=== PATIENT | female | born 1935 | race Caucasian/White ===

== ENCOUNTER 2017-08-16 23:12 | Inpatient (IN) | payer OTHER, MEDICAID ==
[~2017-08-16] VITALS: Ht 157.5 cm; Wt 43.1 kg
[2017-08-16 23:12] VITALS: BP_SYST 69
[2017-08-17] VITALS (25 sets, daily range): BP systolic 43–153
[2017-08-17] MEDS ORDERED: cefTRIAXone 1 GM IVPB PREMIX 50 ML IV ONE (00:15)
[2017-08-17 00:36] LABS: ALANINE AMINOTRANSFERASE 15 U/L (12-78); ALBUMIN 2.6 g/dL (3.4-4.8); ASPARTATE AMINOTRANSFERASE 29 U/L (10-37); TOTAL BILIRUBIN 0.6 mg/dL (0.0-1.0)
[2017-08-17] MEDS ORDERED: DOCU-144 PO (00:39)
[2017-08-17] MEDS ORDERED: ASCO500T20 PO (00:39)
[2017-08-17] MEDS ORDERED: ACET-2165 PO (00:39)
[2017-08-17] MEDS ORDERED: MAGN400O4 PO (00:40)
[2017-08-17] MEDS ORDERED: MULT-300 PO (00:41)
[2017-08-17] MEDS ORDERED: ACET-1010 PO (00:42)
[2017-08-17 01:00] LABS: CLARITY/URINE CLOUDY (CLEAR); COLOR,URINE RED (YELLOW); PH,URINE 8.5 (5.0-8.0)
[2017-08-17 01:01] LABS: BILIRUBIN,URINE NEGATIVE (NEGATIVE); BLOOD, URINE 3+ (NEGATIVE); GLUCOSE,URINE NEGATIVE (NEGATIVE); KETONES,URINE NEGATIVE (NEGATIVE); LEUKOCYTE ESTERASE ,URINE 3+ (NEGATIVE); NITRITE, URINE NEGATIVE (NEGATIVE); PROTEIN URINE 1+ (NEGATIVE); UROBILINOGEN,URINE 0.2 (0.2-1.0)
[2017-08-17 01:08] LABS: BACTERIA,URINE MANY /HPF (None Seen); MUCUS,URINE 2+ /LPF (None Seen); RBC,URINE >100 /HPF (0-3); WBC,URINE 20-50 /HPF (0-3)
[2017-08-17 01:10] LABS: HEMATOCRIT 41.9 % (36-48); HEMOGLOBIN 13.8 g/dL (12.0-16.0); MEAN CORPUSCULAR HEMOGLOBIN 28 pg (27-31); MEAN CORPUSCULAR HGB CONC 33 % (32-36); MEAN CORPUSCULAR VOLUME 86 fL (79.0-98.0); PLATELET COUNT (AUTO) 153 K/uL (130-430); RED BLOOD CELL COUNT(AUTO) 4.87 MIL/uL (4.2-6.2); RED CELL DISTRIBUTION WIDTH 13.6 % (9.0-15.0)
[2017-08-17 01:12] LABS: WHITE BLOOD COUNT (AUTO) 37.8 K/uL (4.8-10.8)
[2017-08-17 01:19] LABS: BAND % (MANUAL) 27 % (0-6); BASOPHILS % (MANUAL) 0 % (0-2); EOSINOPHILS % (MANUAL) 0 % (0-7); LYMPHOCYTES % (MANUAL) 3 % (20-46); METAMYELOCYTES % 2 % (0-0); MONOCYTES % (MANUAL) 1 % (0-11)
[2017-08-17 01:24] LABS: ANION GAP 20 (5-15); CALCIUM 8.8 mg/dL (8.4-11.0); CHLORIDE 109 mmol/L (98-107); CREATININE 3.31 mg/dL (0.55-1.30); GLUCOSE 138 mg/dL (70-99); POTASSIUM 3.4 mmol/L (3.5-5.1); UREA NITROGEN, BLOOD 77 mg/dL (8-21)
[2017-08-17 01:27] LABS: SODIUM SERUM 148 mmol/L (136-145)
[2017-08-17 01:30] LABS: INR 1.2 (0.8-1.2); PROTHROMBIN TIME 12.6 SECS (9.5-12.5)
[2017-08-17] MEDS ORDERED: NS 500 ML IV ONE ×2 (02:30→08:45)
[2017-08-17] MEDS ORDERED: PIPERACILLIN/TAZO 4.5 GM in NS 100 ML IV ONE (02:45)
[2017-08-17] MEDS ORDERED: ONDANSETRON HCL 4 MG/2 ML VIAL IVP PRN (02:45)
[2017-08-17] MEDS ORDERED: ACETAMINOPHEN 325 MG TABLET PO PRN (02:45)
[2017-08-17] MEDS ORDERED: PIPERACILLIN/TAZOBACTAM 4.5 GM/VIAL (ZOSYN) IV ONE (03:00)
[2017-08-17] MEDS: NACL 0.9% 1,000 ML IV SCH ×2 (03:26→10:03)
[2017-08-17] MEDS ORDERED: NOREPINEPHRINE 4 MG/4 ML VIAL IV ONE (03:33)
[2017-08-17] MEDS: NOREPINEPHRINE BITARTRATE 4 MG in NS 246 ML IV SCH ×3 (03:41→23:15)
[2017-08-17] MEDS ORDERED: PIPERACILLIN/TAZO 4.5 GM in NS 100 ML IV SCH (06:00)
[2017-08-17 06:52] LABS: ANION GAP 19 (5-15); CALCIUM 8.7 mg/dL (8.4-11.0); CHLORIDE 110 mmol/L (98-107); CREATININE 2.91 mg/dL (0.55-1.30); GLUCOSE 236 mg/dL (70-99); SODIUM SERUM 146 mmol/L (136-145); UREA NITROGEN, BLOOD 78 mg/dL (8-21)
[2017-08-17 07:02] LABS: ALANINE AMINOTRANSFERASE 12 U/L (12-78); ASPARTATE AMINOTRANSFERASE 27 U/L (10-37); TOTAL BILIRUBIN 0.7 mg/dL (0.0-1.0)
[2017-08-17 07:09] LABS: POTASSIUM 2.9 mmol/L (3.5-5.1)
[2017-08-17 07:13] LABS: HEMATOCRIT 43.8 % (36-48); HEMOGLOBIN 14.9 g/dL (12.0-16.0); MEAN CORPUSCULAR HEMOGLOBIN 29 pg (27-31); MEAN CORPUSCULAR HGB CONC 34 % (32-36); MEAN CORPUSCULAR VOLUME 86 fL (79.0-98.0); PLATELET COUNT (AUTO) 141 K/uL (130-430); RED CELL DISTRIBUTION WIDTH 13.8 % (9.0-15.0)
[2017-08-17 07:38] LABS: WHITE BLOOD COUNT (AUTO) 64.4 K/uL (4.8-10.8)
[2017-08-17] MEDS ORDERED: NACL 0.9% 1,000 ML IV ONE ×2 (07:45)
[2017-08-17] MEDS ORDERED: SODIUM BICARBONATE 8.4% VIAL 50 MEQ/50 ML VIAL INJ ONE (08:00)
[2017-08-17] MEDS ORDERED: VANCOMYCIN HCL 1 GM/NS PREMIX 250 ML IV ONE (08:00)
[2017-08-17] MEDS ORDERED: DIGOXIN 0.5 MG/2 ML AMP IVP ONE ×3 (08:00→17:45)
[2017-08-17] MEDS ORDERED: DOPamine PREMIX 250 ML IV PRN (08:00)
[2017-08-17] MEDS ORDERED: PANTOPRAZOLE SODIUM 40 MG/VIAL (PROTONIX) IVP SCH (09:00)
[2017-08-17] MEDS: PANTOPRAZOLE SODIUM 40 MG/VIAL (PROTONIX) IVP SCH (09:00)
[2017-08-17] MEDS: ENOXAPARIN SODIUM 30 MG/0.3 ML SYRINGE SUBCUT SCH (09:16)
[2017-08-17] MEDS: POTASSIUM CHLORIDE 40 MEQ in NS 250 ML IV SCH ×2 (09:16→14:59)
[2017-08-17] MEDS: ALBUMIN HUMAN 25% 50 ML IV SCH ×3 (09:22→21:26)
[2017-08-17] MEDS ORDERED: SODIUM BICARBONATE 8.4% JECT 50 MEQ/50 ML SYRINGE ONE (09:25)
[2017-08-17] MEDS ORDERED: METOPROLOL TARTRATE 5 MG/5 ML VIAL IVP PRN (09:30)
[2017-08-17 09:50] LABS: ATYPICAL LYMPHOCYTES % 0 % (0-0); BAND % (MANUAL) 28 % (0-6); BASOPHILS % (MANUAL) 0 % (0-2); EOSINOPHILS % (MANUAL) 0 % (0-7); LYMPHOCYTES % (MANUAL) 1 % (20-46); METAMYELOCYTES % 2 % (0-0); MONOCYTES % (MANUAL) 2 % (0-11); MYELOCYTES % 4 % (0-0); PROMYELOCYTES % 2 % (0-0)
[2017-08-17] MEDS ORDERED: FUROSEMIDE 20 MG/2 ML VIAL IVP ONE (11:45)
[2017-08-17] MEDS ORDERED: IPRATROPIUM/ALBUTEROL SULFATE 3 ML AMPUL.NEB INH PRN (11:45)
[2017-08-17] MEDS ORDERED: IPRATROPIUM/ALBUTEROL SULFATE 3 ML AMPUL.NEB INH SCH (11:45)
[2017-08-17] MEDS ORDERED: IPRATROPIUM BROM 0.5 MG/2.5 ML VIAL.NEB (ATROVENT) INH PRN (12:00)
[2017-08-17] MEDS ORDERED: LevALBUTEROL HCL 1.25 MG/0.5 ML *CONC.* VIAL.NEB (XOPENEX CONC.) INH PRN (12:00)
[2017-08-17] MEDS: LevALBUTEROL HCL 1.25 MG/0.5 ML *CONC.* VIAL.NEB (XOPENEX CONC.) INH SCH ×2 (12:22→20:32)
[2017-08-17] MEDS: IPRATROPIUM BROM 0.5 MG/2.5 ML VIAL.NEB (ATROVENT) INH SCH ×2 (12:22→20:32)
[2017-08-17] MEDS ORDERED: HYDROCORTISONE SOD SUCC 100 MG/2 ML VIAL IVP ONE (14:45)
[2017-08-17 16:56] LABS: ALBUMIN 2.7 g/dL (3.4-4.8); ANION GAP 14 (5-15); CALCIUM 8.2 mg/dL (8.4-11.0); CHLORIDE 119 mmol/L (98-107); GLUCOSE 144 mg/dL (70-99); POTASSIUM 3.9 mmol/L (3.5-5.1); SODIUM SERUM 150 mmol/L (136-145); TOTAL BILIRUBIN 0.9 mg/dL (0.0-1.0); UREA NITROGEN, BLOOD 61 mg/dL (8-21)
[2017-08-17] MEDS ORDERED: GENTAMICIN 80 MG/ ISO-OSM 100 ML PREMIX IV SCH (17:00)
[2017-08-17] MEDS: PIPERACILLIN/TAZO 2.25G/DEX-IS 50 ML IV SCH ×2 (17:49→23:14)
[2017-08-17 17:50] LABS: ALANINE AMINOTRANSFERASE 19 U/L (12-78); ASPARTATE AMINOTRANSFERASE 60 U/L (10-37)
[2017-08-17] MEDS ORDERED: SODIUM BICARBONATE 8.4% JECT 50 MEQ/50 ML SYRINGE IVP ONE (18:30)
[2017-08-17] MEDS: HYDROCORTISONE SOD SUCC 100 MG/2 ML VIAL IVP SCH (21:26)
[2017-08-18] VITALS (24 sets, daily range): BP systolic 93–150
[2017-08-18] MEDS: LevALBUTEROL HCL 1.25 MG/0.5 ML *CONC.* VIAL.NEB (XOPENEX CONC.) INH SCH ×4 (01:00→19:50)
[2017-08-18] MEDS: IPRATROPIUM BROM 0.5 MG/2.5 ML VIAL.NEB (ATROVENT) INH SCH ×4 (01:00→19:50)
[2017-08-18] MEDS: PIPERACILLIN/TAZO 2.25G/DEX-IS 50 ML IV SCH ×4 (05:10→23:37)
[2017-08-18] MEDS: NACL 0.9% 1,000 ML IV SCH (05:10)
[2017-08-18] MEDS: HYDROCORTISONE SOD SUCC 100 MG/2 ML VIAL IVP SCH ×3 (05:11→21:51)
[2017-08-18 06:53] LABS: ANION GAP 19 (5-15); CALCIUM 8.3 mg/dL (8.4-11.0); CREATININE 1.62 mg/dL (0.55-1.30); GLUCOSE 141 mg/dL (70-99); POTASSIUM 3.8 mmol/L (3.5-5.1); SODIUM SERUM 156 mmol/L (136-145); UREA NITROGEN, BLOOD 55 mg/dL (8-21)
[2017-08-18 07:07] LABS: ALANINE AMINOTRANSFERASE 21 U/L (12-78); ALBUMIN 2.7 g/dL (3.4-4.8); ASPARTATE AMINOTRANSFERASE 58 U/L (10-37); THYROID STIMULATING HORMONE 0.13 uIu/mL (0.36-3.74); TOTAL BILIRUBIN 0.8 mg/dL (0.0-1.0)
[2017-08-18 07:09] LABS: CHLORIDE 120 mmol/L (98-107); INR 1.2 (0.8-1.2)
[2017-08-18 07:36] LABS: CHOLESTEROL 122 mg/dL (<200); HDL CHOLESTEROL 9 mg/dL (>55); LDL CHOLESTEROL 48 mg/dL (<100); TRIGLYCERIDES 137 mg/dL (30-150)
[2017-08-18] MEDS: ENOXAPARIN SODIUM 30 MG/0.3 ML SYRINGE SUBCUT SCH (08:26)
[2017-08-18] MEDS ORDERED: FUROSEMIDE 40 MG/4 ML VIAL ONE (08:27)
[2017-08-18] MEDS: PANTOPRAZOLE SODIUM 40 MG/VIAL (PROTONIX) IVP SCH (08:27)
[2017-08-18] MEDS: DIGOXIN 0.5 MG/2 ML AMP IVP SCH (08:27)
[2017-08-18] MEDS ORDERED: FUROSEMIDE 40 MG/4 ML VIAL IVP ONE (08:30)
[2017-08-18 08:54] LABS: HEMATOCRIT 39.1 % (36-48); HEMOGLOBIN 12.9 g/dL (12.0-16.0); MEAN CORPUSCULAR HEMOGLOBIN 28 pg (27-31); MEAN CORPUSCULAR HGB CONC 33 % (32-36); MEAN CORPUSCULAR VOLUME 85 fL (79.0-98.0); PLATELET COUNT (AUTO) 106 K/uL (130-430); RED CELL DISTRIBUTION WIDTH 14.3 % (9.0-15.0)
[2017-08-18 09:03] LABS: WHITE BLOOD COUNT (AUTO) 48.6 K/uL (4.8-10.8)
[2017-08-18] MEDS: NOREPINEPHRINE BITARTRATE 4 MG in NS 246 ML IV SCH (09:40)
[2017-08-18 09:42] LABS: BAND % (MANUAL) 13 % (0-6)
[2017-08-18 09:43] LABS: BASOPHILS % (MANUAL) 0 % (0-2); EOSINOPHILS % (MANUAL) 0 % (0-7); LYMPHOCYTES % (MANUAL) 3 % (20-46); MONOCYTES % (MANUAL) 2 % (0-11)
[2017-08-18] MEDS ORDERED: 0.45% NS 500 ML IV ONE (09:45)
[2017-08-18] MEDS ORDERED: SODIUM BICARBONATE 8.4% JECT 50 MEQ in D5W 1,000 ML IV SCH (18:15)
[2017-08-18] MEDS ORDERED: SODIUM BICARBONATE 8.4% JECT 50 MEQ/50 ML SYRINGE IVP ONE (18:15)
[2017-08-18] MEDS: D5W 1,000 ML IV SCH (18:29)
[2017-08-18] MEDS ORDERED: COMMUNICATION ORDER XX SCH (18:30)
[2017-08-19] VITALS (25 sets, daily range): BP systolic 95–135
[2017-08-19] MEDS: IPRATROPIUM BROM 0.5 MG/2.5 ML VIAL.NEB (ATROVENT) INH SCH ×4 (01:53→20:03)
[2017-08-19] MEDS: LevALBUTEROL HCL 1.25 MG/0.5 ML *CONC.* VIAL.NEB (XOPENEX CONC.) INH SCH ×4 (01:53→20:03)
[2017-08-19] MEDS: NOREPINEPHRINE BITARTRATE 4 MG in NS 246 ML IV SCH (04:05)
[2017-08-19] MEDS: HYDROCORTISONE SOD SUCC 100 MG/2 ML VIAL IVP SCH ×2 (05:56→20:21)
[2017-08-19] MEDS: PIPERACILLIN/TAZO 2.25G/DEX-IS 50 ML IV SCH ×4 (05:56→23:11)
[2017-08-19 07:00] LABS: ANION GAP 11 (5-15); CALCIUM 8.2 mg/dL (8.4-11.0); CHLORIDE 116 mmol/L (98-107); CREATININE 1.28 mg/dL (0.55-1.30); GLUCOSE 248 mg/dL (70-99); SODIUM SERUM 154 mmol/L (136-145); UREA NITROGEN, BLOOD 42 mg/dL (8-21)
[2017-08-19 07:11] LABS: ALANINE AMINOTRANSFERASE 21 U/L (12-78); ALBUMIN 2.4 g/dL (3.4-4.8); ASPARTATE AMINOTRANSFERASE 34 U/L (10-37); FREE T4 (FREE THYROXINE) 1.1 ng/dl (0.8-1.5); TOTAL BILIRUBIN 0.5 mg/dL (0.0-1.0)
[2017-08-19 07:20] LABS: POTASSIUM 2.7 mmol/L (3.5-5.1)
[2017-08-19 07:27] LABS: BASOPHILS % (AUTO) 0.1 % (0.0-2.0); HEMATOCRIT 39.1 % (36-48); HEMOGLOBIN 12.9 g/dL (12.0-16.0); LYMPHOCYTES # (AUTO) 0.9 K/uL (1.0-5.5); LYMPHOCYTES % (AUTO) 2.5 % (20.5-51.5); MEAN CORPUSCULAR HEMOGLOBIN 28 pg (27-31); MEAN CORPUSCULAR HGB CONC 33 % (32-36); MEAN CORPUSCULAR VOLUME 85 fL (79.0-98.0); MONOCYTES # (AUTO) 0.8 K/uL (0.0-1.0); MONOCYTES % (AUTO) 2.3 % (1.7-9.3); NEUTROPHILS # (AUTO) 33.2 K/uL (1.8-7.7); PLATELET COUNT (AUTO) 85 K/uL (130-430); RED CELL DISTRIBUTION WIDTH 13.8 % (9.0-15.0)
[2017-08-19 08:08] LABS: WHITE BLOOD COUNT (AUTO) 34.9 K/uL (4.8-10.8)
[2017-08-19] MEDS ORDERED: POTASSIUM CHLORIDE 20 MEQ/PKT PACKET PO ONE (08:30)
[2017-08-19] MEDS ORDERED: KCL 40 mEq in D5W 1000 mL 1,000 ML IV SCH (09:00)
[2017-08-19] MEDS: DIGOXIN 0.5 MG/2 ML AMP IVP SCH (09:28)
[2017-08-19] MEDS: D5W 1,000 ML IV SCH ×3 (09:28→23:11)
[2017-08-19] MEDS: PANTOPRAZOLE SODIUM 40 MG/VIAL (PROTONIX) IVP SCH (09:29)
[2017-08-19] MEDS: ENOXAPARIN SODIUM 30 MG/0.3 ML SYRINGE SUBCUT SCH (09:29)
[2017-08-19] MEDS ORDERED: POTASSIUM CHLORIDE 60 MEQ in D5W 500 ML IV ONE (09:30)
[2017-08-19 10:25] LABS: NEUTROPHILS % (AUTO) 95.1 % (40.0-70.0)
[2017-08-19] MEDS: METOPROLOL TARTRATE 5 MG/5 ML VIAL IVP SCH ×3 (10:26→22:00)
[2017-08-19] MEDS ORDERED: GENTAMICIN 100 MG/ ISO-OSM 50 ML PREMIX IV SCH (12:00)
[2017-08-19] MEDS ORDERED: COMMUNICATION ORDER XX ONE (15:15)
[2017-08-20] VITALS (25 sets, daily range): BP systolic 94–127
[2017-08-20] MEDS: LevALBUTEROL HCL 1.25 MG/0.5 ML *CONC.* VIAL.NEB (XOPENEX CONC.) INH SCH ×4 (00:40→19:32)
[2017-08-20] MEDS: IPRATROPIUM BROM 0.5 MG/2.5 ML VIAL.NEB (ATROVENT) INH SCH ×4 (00:40→19:32)
[2017-08-20] MEDS: METOPROLOL TARTRATE 5 MG/5 ML VIAL IVP SCH ×4 (04:00→21:25)
[2017-08-20] MEDS: PIPERACILLIN/TAZO 2.25G/DEX-IS 50 ML IV SCH ×4 (05:19→23:10)
[2017-08-20 07:09] LABS: SODIUM SERUM 144 mmol/L (136-145)
[2017-08-20 07:10] LABS: ALANINE AMINOTRANSFERASE 19 U/L (12-78); ANION GAP 8 (5-15); ASPARTATE AMINOTRANSFERASE 19 U/L (10-37); CHLORIDE 110 mmol/L (98-107); CREATININE 1.07 mg/dL (0.55-1.30); GLUCOSE 263 mg/dL (70-99); POTASSIUM 3.4 mmol/L (3.5-5.1); TOTAL BILIRUBIN 0.6 mg/dL (0.0-1.0); UREA NITROGEN, BLOOD 36 mg/dL (8-21)
[2017-08-20 07:59] LABS: BASOPHILS % (AUTO) 0.3 % (0.0-2.0); EOSINOPHILS % (AUTO) 0.1 % (0.0-4.0); LYMPHOCYTES % (AUTO) 6.1 % (20.5-51.5); MEAN CORPUSCULAR HEMOGLOBIN 28 pg (27-31); MEAN CORPUSCULAR HGB CONC 32 % (32-36); MEAN CORPUSCULAR VOLUME 85 fL (79.0-98.0); MONOCYTES # (AUTO) 0.4 K/uL (0.0-1.0); MONOCYTES % (AUTO) 2.3 % (1.7-9.3); NEUTROPHILS % (AUTO) 91.2 % (40.0-70.0); PLATELET COUNT (AUTO) 76 K/uL (130-430); RED BLOOD CELL COUNT(AUTO) 3.98 MIL/uL (4.2-6.2); RED CELL DISTRIBUTION WIDTH 14.1 % (9.0-15.0); WHITE BLOOD COUNT (AUTO) 16.4 K/uL (4.8-10.8)
[2017-08-20] MEDS: PANTOPRAZOLE SODIUM 40 MG/VIAL (PROTONIX) IVP SCH (10:29)
[2017-08-20] MEDS: ENOXAPARIN SODIUM 30 MG/0.3 ML SYRINGE SUBCUT SCH (10:29)
[2017-08-20] MEDS: HYDROCORTISONE SOD SUCC 100 MG/2 ML VIAL IVP SCH ×2 (10:29→21:24)
[2017-08-20] MEDS: D5W 1,000 ML IV SCH ×2 (11:14→22:17)
[2017-08-20] MEDS ORDERED: POTASSIUM CHLORIDE 40 MEQ in NS 250 ML IV ONE (17:00)
[2017-08-20] MEDS: VANCOMYCIN HCL 500 MG in NS 100 ML IV SCH (17:10)
[2017-08-20] MEDS: KCL 20 mEq in 100 mL (PREMIX) 100 ML IV SCH ×2 (17:14→19:32)
[2017-08-21] VITALS (15 sets, daily range): BP systolic 96–129
[2017-08-21] MEDS: LevALBUTEROL HCL 1.25 MG/0.5 ML *CONC.* VIAL.NEB (XOPENEX CONC.) INH SCH ×4 (00:35→19:46)
[2017-08-21] MEDS: IPRATROPIUM BROM 0.5 MG/2.5 ML VIAL.NEB (ATROVENT) INH SCH ×4 (00:35→19:46)
[2017-08-21 02:15] LABS: T4 (THYROXINE) 4.9 ug/dL (4.5-12.0)
[2017-08-21] MEDS: PIPERACILLIN/TAZO 2.25G/DEX-IS 50 ML IV SCH ×2 (05:27→12:02)
[2017-08-21] MEDS: METOPROLOL TARTRATE 5 MG/5 ML VIAL IVP SCH ×3 (05:28→09:17)
[2017-08-21 06:40] LABS: BASOPHILS % (AUTO) 0.1 % (0.0-2.0); EOSINOPHILS % (AUTO) 0.1 % (0.0-4.0); HEMATOCRIT 33.9 % (36-48); HEMOGLOBIN 11.5 g/dL (12.0-16.0); LYMPHOCYTES # (AUTO) 0.6 K/uL (1.0-5.5); LYMPHOCYTES % (AUTO) 4.5 % (20.5-51.5); MEAN CORPUSCULAR HEMOGLOBIN 29 pg (27-31); MEAN CORPUSCULAR HGB CONC 34 % (32-36); MEAN CORPUSCULAR VOLUME 86 fL (79.0-98.0); MONOCYTES # (AUTO) 0.2 K/uL (0.0-1.0); MONOCYTES % (AUTO) 1.7 % (1.7-9.3); NEUTROPHILS # (AUTO) 12.6 K/uL (1.8-7.7); NEUTROPHILS % (AUTO) 93.6 % (40.0-70.0); PLATELET COUNT (AUTO) 62 K/uL (130-430); RED BLOOD CELL COUNT(AUTO) 3.96 MIL/uL (4.2-6.2); RED CELL DISTRIBUTION WIDTH 13.7 % (9.0-15.0); WHITE BLOOD COUNT (AUTO) 13.4 K/uL (4.8-10.8)
[2017-08-21 06:55] LABS: ALANINE AMINOTRANSFERASE 26 U/L (12-78); ALBUMIN 2.1 g/dL (3.4-4.8); ANION GAP 6 (5-15); ASPARTATE AMINOTRANSFERASE 27 U/L (10-37); CHLORIDE 106 mmol/L (98-107); CREATININE 0.84 mg/dL (0.55-1.30); GLUCOSE 258 mg/dL (70-99); PHOSPHORUS 1.9 mg/dL (2.7-4.5); POTASSIUM 3.6 mmol/L (3.5-5.1); SODIUM SERUM 138 mmol/L (136-145); TOTAL BILIRUBIN 0.8 mg/dL (0.0-1.0); TRIGLYCERIDES 109 mg/dL (30-150); UREA NITROGEN, BLOOD 24 mg/dL (8-21)
[2017-08-21] MEDS: SILVER 44.4 ML GEL.ER.ML. TP SCH (09:00)
[2017-08-21] MEDS: ENOXAPARIN SODIUM 30 MG/0.3 ML SYRINGE SUBCUT SCH (09:03)
[2017-08-21] MEDS: HYDROCORTISONE SOD SUCC 100 MG/2 ML VIAL IVP SCH (09:03)
[2017-08-21] MEDS: PANTOPRAZOLE SODIUM 40 MG/VIAL (PROTONIX) IVP SCH (09:03)
[2017-08-21] MEDS ORDERED: 0.45% NACL 1,000 ML IV SCH (11:30)
[2017-08-21] MEDS ORDERED: COMMUNICATION ORDER XX ONE (12:15)
[2017-08-21] MEDS: VANCOMYCIN HCL 500 MG in NS 100 ML IV SCH (15:53)
[2017-08-21] MEDS: FAT EMULSIONS 250 ML IV SCH (17:26)
[2017-08-21] MEDS: 0.45% NACL 1,000 ML IV SCH (17:39)
[2017-08-21] MEDS ORDERED: DEXTROSE 50% JECT 50 ML DISP.SYRIN IVP PRN (18:00)
[2017-08-21] MEDS ORDERED: TPN CENTRAL 0.0001 ML, SODIUM ACETATE 40 MEQ, POTASSIUM CHLORIDE 20 MEQ, K PHOS 12 MM, ... IV SCH ×10 (18:00)
[2017-08-21] MEDS ORDERED: INSULIN REGULAR, HUMAN 100 UNITS/ML, 10 ML VIAL (novoLIN R) SUBCUT PRN (18:00)
[2017-08-21] MEDS ORDERED: *TPN PER PHARMACY XX PRN (18:00)
[2017-08-21] MEDS: CEFEPIME 1 GM in D5W 50 ML IV SCH (23:14)
[2017-08-22] MEDS: IPRATROPIUM BROM 0.5 MG/2.5 ML VIAL.NEB (ATROVENT) INH SCH ×4 (00:30→20:29)
[2017-08-22] MEDS: LevALBUTEROL HCL 1.25 MG/0.5 ML *CONC.* VIAL.NEB (XOPENEX CONC.) INH SCH ×4 (00:30→20:29)
[2017-08-22 01:07] VITALS: BP_SYST 101
[2017-08-22 06:33] LABS: ALANINE AMINOTRANSFERASE 40 U/L (12-78); ALBUMIN 1.9 g/dL (3.4-4.8); ANION GAP 5 (5-15); ASPARTATE AMINOTRANSFERASE 39 U/L (10-37); CALCIUM 8.1 mg/dL (8.4-11.0); CHLORIDE 108 mmol/L (98-107); CREATININE 0.71 mg/dL (0.55-1.30); GLUCOSE 141 mg/dL (70-99); PHOSPHORUS 2.3 mg/dL (2.7-4.5); SODIUM SERUM 140 mmol/L (136-145); TOTAL BILIRUBIN 0.6 mg/dL (0.0-1.0); TRIGLYCERIDES 130 mg/dL (30-150); UREA NITROGEN, BLOOD 22 mg/dL (8-21)
[2017-08-22 06:45] LABS: POTASSIUM 2.9 mmol/L (3.5-5.1)
[2017-08-22] MEDS ORDERED: KCL 20 mEq in 100 mL (PREMIX) 200 ML IV ONE (07:15)
[2017-08-22 08:08] VITALS: BP_SYST 91
[2017-08-22] MEDS: CEFEPIME 1 GM in D5W 50 ML IV SCH (09:51)
[2017-08-22] MEDS: ENOXAPARIN SODIUM 30 MG/0.3 ML SYRINGE SUBCUT SCH (09:52)
[2017-08-22] MEDS: PANTOPRAZOLE SODIUM 40 MG/VIAL (PROTONIX) IVP SCH (09:52)
[2017-08-22] MEDS: SILVER 44.4 ML GEL.ER.ML. TP SCH (09:54)
[2017-08-22 12:09] VITALS: BP_SYST 81
[2017-08-22] MEDS: VANCOMYCIN HCL 500 MG in NS 100 ML IV SCH (14:31)
[2017-08-22 14:32] LABS: ANION GAP 5 (5-15); CALCIUM 8.1 mg/dL (8.4-11.0); CHLORIDE 110 mmol/L (98-107); CREATININE 0.71 mg/dL (0.55-1.30); GLUCOSE 132 mg/dL (70-99); POTASSIUM 3.8 mmol/L (3.5-5.1); SODIUM SERUM 142 mmol/L (136-145); UREA NITROGEN, BLOOD 23 mg/dL (8-21)
[2017-08-22 16:42] VITALS: BP_SYST 110
[2017-08-22] MEDS: FAT EMULSIONS 250 ML IV SCH (17:32)
[2017-08-22] MEDS: 0.45% NACL 1,000 ML IV SCH (17:33)
[2017-08-22] MEDS ORDERED: TPN CENTRAL IV SCH ×11 (18:00)
[2017-08-22] MEDS ORDERED: [UNRECOGNIZED DRUG - OTHER] IV SCH ×11 (18:00)
[2017-08-22] MEDS ORDERED: POTASSIUM ACETATE IV SCH ×11 (18:00)
[2017-08-22] MEDS ORDERED: SODIUM ACETATE IV SCH ×11 (18:00)
[2017-08-22 19:10] VITALS: BP_SYST 110
[2017-08-22 20:00] VITALS: BP_SYST 103
== END 2017-08-22 20:35 | DRG 871 ==
LOC: SED 23:12 → SIC 08-17 02:38 → STU 08-21 13:12
PROVIDERS: ADMIT Internal Medicine; ATTEND Internal Medicine
PROC: 02HV33Z Insertion of Infusion Device into Superior Vena Cava, Percutaneous Approach (ICD-10-PCS; principal; 2017-08-20)
PROC: B548ZZA Ultrasonography of Superior Vena Cava, Guidance (ICD-10-PCS; 2017-08-20)
DX: A41.51 Sepsis due to Escherichia coli [E. coli] (principal); I21.9 Acute myocardial infarction, unspecified; N17.0 Acute kidney failure with tubular necrosis; R65.21 Severe sepsis with septic shock; E43 Unspecified severe protein-calorie malnutrition; G93.41 Metabolic encephalopathy; L89.154 Pressure ulcer of sacral region, stage 4; D69.6 Thrombocytopenia, unspecified; E87.0 Hyperosmolality and hypernatremia; I47.1 Supraventricular tachycardia; N12 Tubulo-interstitial nephritis, not specified as acute or chronic; Z68.1 Body mass index [BMI] 19.9 or less, adult; E87.2 Acidosis; E88.09 Other disorders of plasma-protein metabolism, not elsewhere classified; E83.42 Hypomagnesemia; G20 Parkinson's disease; I48.0 Paroxysmal atrial fibrillation; I10 Essential (primary) hypertension; E86.0 Dehydration; R13.10 Dysphagia, unspecified; B96.4 Proteus (mirabilis) (morganii) as the cause of diseases classified elsewhere; E87.6 Hypokalemia; F02.80 Dementia in other diseases classified elsewhere, unspecified severity, without behavioral disturbance, psychotic disturbance, mood disturbance, and anxiety; Z87.891 Personal history of nicotine dependence; Z74.01 Bed confinement status; Z88.2 Allergy status to sulfonamides; Z88.1 Allergy status to other antibiotic agents
CPT/HCPCS: 36415; 36600; 71045; 80048; 80053; 80061; 80170-TC; 81000-TC; 82803-TC; 82962; 83605; 83735-TC; 83880; 84100-TC; 84436; 84439; 84443-TC; 84478-TC; 84480; 84484; 85007; 85025; 85027; 85610-TC; 85730-TC; 87040-TC; 87070-TC; 87081; 87086; 87186-TC; 93005; 93306; 94640; 94760; 96361; 96365; 99285; A6261; C1751; C9113; J0610; J0692; J0696; J1160; J1580; J1650; J1720; J1940; J2543; J3370; J3475; J3480; J3490; J7030; J7050; J7060; J7612; P9046